=== PATIENT | male | born 1955 | race African-American/Black ===

== ENCOUNTER 2025-03-01 14:38 | Inpatient (IN) | payer MEDICAID ==
[~2025-03-01] VITALS: Ht 175.3 cm; Wt 76.7 kg
[2025-03-01 14:41] VITALS: O2SAT 98
[2025-03-01] MEDS: SODIUM CHLORIDE 0.9% 1,000 ML IV ONE (15:18)
[2025-03-01 15:32] LABS: HEMATOCRIT. 38.2 % (42.0-52.0); HEMOGLOBIN. 12.3 g/dL (14.0-18.0); MEAN PLATELET VOLUME 9.7 fl (7.4-10.4); PLATELET 170 x1000/uL (130-400); RED BLOOD CELL COUNT 4.25 mill/uL (4.7-6.1); RED CELL DISTRIBUTION WIDTH 14.6 % (11.6-14.6)
[2025-03-01 15:39] LABS: CREATININE 2.7 mg/dL (0.6-1.3); UREA NITROGEN BLOOD 19 mg/dL (9-23)
[2025-03-01 15:40] LABS: TROPONIN I HIGH SENSITIVITY < 4 ng/L (3.0-53)
[2025-03-01 15:41] LABS: BILIRUBIN DIRECT 3.1 mg/dL (<=3.0)
[2025-03-01 15:42] LABS: BILIRUBIN TOTAL 4.2 mg/dL (0.1-1.0); PROTEIN TOTAL 5.9 g/dL (6.0-8.3)
[2025-03-01 15:47] LABS: LYMPHOCYTES % MANUAL 10.0 % (20.0-50.0); MONOCYTES % MANUAL 6.0 % (2.0-8.0); NEUTROPHILS % MANUAL 84.0 % (45.0-75.0); PLATELET ESTIMATE NORMAL
[2025-03-01 16:00] LABS: ASPARTATE AMINOTRANSFERASE > 6000 IU/L (<34)
[2025-03-01 16:27] LABS: INR 3.7
[2025-03-01] MEDS: LEVETIRACETAM 500MG PREMIX 100 ML IV ONE (16:41)
[2025-03-01] MEDS: DEXTROSE 50% WATER 50ML SYRINGE IV ONE (16:41)
[2025-03-01] MEDS: LORAZEPAM 2MG/ML UD SYRINGE IV SCH (16:42)
[2025-03-01] MEDS ORDERED: FOLIC ACID 1 MG, THIAMINE HCL 100 MG, MVI, ADULT NO.1 10 ML in DEXTROSE 5% WATER 1,000 ML IV ONE (17:45)
[2025-03-01] MEDS ORDERED: LACTULOSE ENEMA 1,000ML BOTTLE PR STA (17:46)
[2025-03-01] MEDS: DEXT 5%/0.45% NACL 1000ML 1,000 ML IV ONE (18:30)
[2025-03-01] MEDS: FOLIC ACID 1 MG, THIAMINE HCL 100 MG, MVI, ADULT NO.1 10 ML in DEXTROSE 5% WATER 1,000 ML IV ONE (18:53)
[2025-03-01 19:25] LABS: BG DEOXYHEMOGLOBIN 10.4 % (0.0-5.0)
[2025-03-01 20:18] VITALS: BP 115/69; PULSE 88; RESP 18; TEMP 36.6; O2SAT 100
[2025-03-01] MEDS ORDERED: IOHEXOL-350 100 ML BOTTLE ONE (20:43)
[2025-03-01] MEDS ORDERED: IOHEXOL-300 100 ML BOTTLE ONE (20:43)
[2025-03-01 21:00] VITALS: BP_SYST 102; BP_SYST 115; BP_DIAS 55; BP_DIAS 69; PULSE 80; PULSE 88; RESP 14; RESP 20; TEMP 36.7516; O2SAT 100
[2025-03-01] MEDS ORDERED: ONDANSETRON HCL 4MG/2ML INJ IV PRN (21:30)
[2025-03-01 22:00] VITALS: BP 112/90; PULSE 85; RESP 20; O2SAT 100
[2025-03-01 23:00] VITALS: BP 119/81; PULSE 88; RESP 21; O2SAT 94
[2025-03-02] VITALS (16 sets, daily range): BP systolic 96–145; BP diastolic 55–97; PULSE 81–104; RESP 16–24; TEMP 36.2–36.8; O2SAT 92–100
[2025-03-02] MEDS ORDERED: LORAZEPAM 2MG/ML UD SYRINGE IV PRN (05:14)
[2025-03-02] MEDS: PANTOPRAZOLE SODIUM 40 MG/VIAL IV SCH (09:27)
[2025-03-02] MEDS: LEVETIRACETAM 1000MG PREMIX 100 ML IV SCH (09:27)
[2025-03-02] MEDS: FOLIC ACID 1 MG, THIAMINE HCL 100 MG, MVI, ADULT NO.1 10 ML in DEXTROSE 5% WATER 1,000 ML IV SCH (09:28)
[2025-03-02 11:25] LABS: CLARITY URINE CLOUDY (CLEAR); COLOR URINE DARK YELLOW (YELLOW); GLUCOSE URINE NEGATIVE (NEGATIVE); KETONES URINE NEGATIVE (NEGATIVE); LEUKOCYTE ESTERASE URINE TRACE (NEGATIVE); NITRITE URINE NEGATIVE (NEGATIVE); OCCULT BLOOD URINE 2+ (NEGATIVE); PH URINE 5.5 (4.5-8.0); PROTEIN URINE 2+ (NEGATIVE); SPECIFIC GRAVITY URINE 1.058 (1.005-1.030); UROBILINOGEN URINE 1.0 E.U./dL (0.2-1.0)
[2025-03-02 11:46] LABS: *AMPHETAMINES SCREEN URINE NEGATIVE (NEGATIVE); *BARBITURATES SCREEN URINE NEGATIVE (NEGATIVE); *BENZODIAZEPINES SCREEN URINE NEGATIVE (NEGATIVE); *COCAINE SCREEN URINE NEGATIVE (NEGATIVE)
[2025-03-02 11:47] LABS: CANNABINOID URINE SCREEN NEGATIVE (NEGATIVE); ECSTASY MDMA SCREEN URINE NEGATIVE (NEGATIVE); METHADONE URINE SCREEN NEGATIVE (NEGATIVE); OPIATES URINE SCREEN NEGATIVE (NEGATIVE); PHENCYCLIDINE URINE SCREEN NEGATIVE (NEGATIVE)
[2025-03-02 12:14] LABS: RBC URINE 0-2 /hpf (0-2)
[2025-03-02 12:15] LABS: BACTERIA URINE 3+; CALCIUM OXALATE CRYSTALS URINE 1+ /lpf; COARSE GRANULAR CASTS URINE 0-5 /lpf; SQUAMOUS EPITHELIAL CELL URINE FEW /lpf (RARE/1+)
[2025-03-02 13:21] LABS: HEMATOCRIT. 41.2 % (42.0-52.0); HEMOGLOBIN. 13.5 g/dL (14.0-18.0); MEAN PLATELET VOLUME 8.4 fl (7.4-10.4); PLATELET 144 x1000/uL (130-400); RED BLOOD CELL COUNT 4.66 mill/uL (4.7-6.1); RED CELL DISTRIBUTION WIDTH 15.1 % (11.6-14.6)
[2025-03-02 14:51] LABS: UREA NITROGEN BLOOD 18.0 mg/dL (9-23)
[2025-03-02 15:03] LABS: CREATININE 1.6 mg/dL (0.6-1.3)
[2025-03-02] MEDS: KCL 20MEQ/100ML PREMIX 100 ML IV SCH (20:05)
[2025-03-02 23:27] LABS: EOSINOPHILS % MANUAL 1.0 % (0.0-5.0); LYMPHOCYTES % MANUAL 12.0 % (20.0-50.0); MONOCYTES % MANUAL 7.0 % (2.0-8.0); NEUTROPHILS % MANUAL 80.0 % (45.0-75.0); PLATELET ESTIMATE NORMAL
[2025-03-03] VITALS (9 sets, daily range): BP systolic 120–146; BP diastolic 51–86; PULSE 91–102; RESP 18–24; TEMP 36.3–36.9; O2SAT 97–100
[2025-03-03] MEDS: PIPERACILLIN/TAZO 3.375G/50ML 50 ML IV SCH (09:01)
[2025-03-03] MEDS ORDERED: OLOP5DRO25 EACHEYE (13:54)
[2025-03-03] MEDS ORDERED: AMLO5TAB88 PO (13:54)
[2025-03-03] MEDS ORDERED: CICL6.6S22 TP (13:54)
[2025-03-03] MEDS ORDERED: METO25TA6 MT (13:54)
[2025-03-03] MEDS ORDERED: CALC-586 PO (13:54)
[2025-03-03] MEDS ORDERED: PANT40TA51 MT (13:54)
[2025-03-03] MEDS ORDERED: ALBU18HF2 IH (13:54)
[2025-03-04] VITALS: BP 132/65; PULSE 107; RESP 15; TEMP 36.7; O2SAT 98
[2025-03-04 04:00] VITALS: BP 144/83; PULSE 101; RESP 23; TEMP 36.8; O2SAT 97
[2025-03-04 08:00] VITALS: BP 140/73; PULSE 93; RESP 17; TEMP 36.3; O2SAT 98
[2025-03-04 12:00] VITALS: BP 140/78; PULSE 100; RESP 30; TEMP 36.3; O2SAT 99
[2025-03-04 16:00] VITALS: BP 138/80; PULSE 124; RESP 18; TEMP 36.3; O2SAT 99
[2025-03-04 20:00] VITALS: BP 121/67; PULSE 103; RESP 20; TEMP 36.5
[2025-03-05] VITALS: BP 135/70; PULSE 92; RESP 16; TEMP 36.4; O2SAT 99
[2025-03-05 04:00] VITALS: BP 136/67; PULSE 91; RESP 18; TEMP 36.3; O2SAT 100
[2025-03-05 06:54] LABS: CREATININE 0.7 mg/dL (0.6-1.3); UREA NITROGEN BLOOD 8 mg/dL (9-23)
[2025-03-05 07:01] LABS: HEMATOCRIT. 36.2 % (42.0-52.0); HEMOGLOBIN. 12.3 g/dL (14.0-18.0); MEAN PLATELET VOLUME 8.3 fl (7.4-10.4); PLATELET 167 x1000/uL (130-400); RED BLOOD CELL COUNT 4.14 mill/uL (4.7-6.1); RED CELL DISTRIBUTION WIDTH 15.0 % (11.6-14.6)
[2025-03-05 08:00] VITALS: BP 136/71; PULSE 82; RESP 16; TEMP 36.4; O2SAT 96
[2025-03-05] MEDS: POTASSIUM CHLORIDE 20MEQ TABLET SR PO SCH (09:52)
[2025-03-05 12:00] VITALS: BP 135/76; PULSE 102; RESP 18; TEMP 36.4; O2SAT 98
[2025-03-05 13:43] LABS: BAND% 1.0 % (1.0-6.0); EOSINOPHILS % MANUAL 1.0 % (0.0-5.0); LYMPHOCYTES % MANUAL 23.0 % (20.0-50.0); MONOCYTES % MANUAL 14.0 % (2.0-8.0); NEUTROPHILS % MANUAL 61.0 % (45.0-75.0); PLATELET ESTIMATE NORMAL
[2025-03-05 16:00] VITALS: BP 133/62; PULSE 100; RESP 18; TEMP 36.6; O2SAT 100
[2025-03-05 20:00] VITALS: BP 136/85; PULSE 103; RESP 25; TEMP 37.2; O2SAT 100
[2025-03-06] VITALS: BP 140/77; PULSE 93; RESP 19; TEMP 37.1; O2SAT 98
[2025-03-06 04:00] VITALS: BP 130/75; PULSE 90; RESP 19; TEMP 37.2
[2025-03-06 08:00] VITALS: BP 143/65; PULSE 90; RESP 19; TEMP 36.7
[2025-03-06 08:20] LABS: HEMATOCRIT. 35.9 % (42.0-52.0); HEMOGLOBIN. 12.1 g/dL (14.0-18.0); MEAN PLATELET VOLUME 8.3 fl (7.4-10.4); PLATELET 156 x1000/uL (130-400); RED BLOOD CELL COUNT 4.11 mill/uL (4.7-6.1); RED CELL DISTRIBUTION WIDTH 15.0 % (11.6-14.6)
[2025-03-06 08:35] LABS: CREATININE 0.8 mg/dL (0.6-1.3); UREA NITROGEN BLOOD 8 mg/dL (9-23)
[2025-03-06] MEDS ORDERED: LEVO750T68 MT (10:31)
[2025-03-06] MEDS ORDERED: TAMS-54 MT (10:31)
[2025-03-06 12:00] VITALS: BP 145/84; PULSE 102; RESP 19; TEMP 36.7
[2025-03-06 12:01] VITALS: BP 145/84; PULSE 102; RESP 19; TEMP 97.9
[2025-03-06] MEDS: DOCUSATE SODIUM 250MG CAPSULE PO ONE (12:39)
[2025-03-06 17:04] LABS: EOSINOPHILS % MANUAL 3.0 % (0.0-5.0); LYMPHOCYTES % MANUAL 17.0 % (20.0-50.0); MONOCYTES % MANUAL 20.0 % (2.0-8.0); NEUTROPHILS % MANUAL 60.0 % (45.0-75.0); PLATELET ESTIMATE NORMAL
== END 2025-03-06 13:23 | disposition home or self-care (01) | DRG 720 ==
LOC: ER 14:46 → EDBEDREQ 15:23 → EDBEDREQTM 18:14 → EDBEDREQ 18:14 → EDBEDREQSVC 18:14 → ENRESERV 19:19 → 5EST 20:31
PROVIDERS: ADMIT Internal Medicine; ATTEND Internal Medicine
DX: A41.9 Sepsis, unspecified organism (principal); N17.0 Acute kidney failure with tubular necrosis; R65.21 Severe sepsis with septic shock; E72.20 Disorder of urea cycle metabolism, unspecified; D68.9 Coagulation defect, unspecified; E87.20 Acidosis, unspecified; R56.9 Unspecified convulsions; N39.0 Urinary tract infection, site not specified; K74.60 Unspecified cirrhosis of liver; F10.939 Alcohol use, unspecified with withdrawal, unspecified; D64.9 Anemia, unspecified; I10 Essential (primary) hypertension; K59.00 Constipation, unspecified; I25.10 Atherosclerotic heart disease of native coronary artery without angina pectoris; J44.9 Chronic obstructive pulmonary disease, unspecified; Z85.46 Personal history of malignant neoplasm of prostate; Z79.899 Other long term (current) drug therapy
CPT/HCPCS: 36415; 71275; 74177; 76705; 80048; 80076; 80305; 81003; 82140; 82375; 82803; 82962; 83605; 83735; 83880; 84145; 84484; 85025; 85379; 86850; 86900; 93005; 93970; 97162; 99285; A4606; J1953; J2060; J2470; J2543; J3411; J3480; J3490; J7030; J7070; Q9967